=== PATIENT | male | born 1985 | race Caucasian/White ===

== ENCOUNTER 2019-06-30 19:05 | Emergency (ER) | payer OTHER, MEDICAID, SELFPAY ==
[2019-06-30 19:15] VITALS: BP 124/82; PULSE 84; RESP 17; TEMP 37.1; O2SAT 97; BMI 19.3
[2019-06-30 19:29] LABS: Bacteria Urine None Seen; RBC Urine None Seen (0-5/HPF); WBC Urine None Seen (0-5/HPF)
[2019-06-30 19:31] LABS: Appearance Urine UA CLEAR; Bilirubin Urine UA 1+ (NEGATIVE); Color Urine UA YELLOW; Glucose Urine UA NEGATIVE (Negative); Ketones Urine UA TRACE (NEGATIVE); Leukocyte Esterase Urine UA NEGATIVE (NEGATIVE); Nitrite Urine UA NEGATIVE (Negative); Occult Blood Urine UA NEGATIVE (Negative); Protein Urine UA TRACE (Negative); Specific Gravity Urine UA 1.025 (1.000-1.035); Urobilinogen Urine UA 0.2 E.U./dL (0.2); pH Urine UA 5.5 (4.5-8.0)
[2019-06-30 19:32] LABS: Ictotest Urine Negative (Negative)
--- NOTE | 2019-06-30 19:32 | ED.PSYCH ---
HPI - Psych <Cortez Arellano, DO - Last Filed: 07/01/19 18:43> General Chief Complaint: Psychiatric Symptoms Stated Complaint: Suicidal Thoughts Time Seen by Provider: 06/30/19 19:10 Source: patient Mode of arrival: Ambulatory Limitations: no limitations History of Present Illness HPI Narrative: 34 born male, living as female non smoker presents to the emergency department with a chief complaint suicidal ideation. She has a history of severe depression suicidal ideation with multiple hospitalizations at psychiatric facilities for the same period she does have a plan to by hypothermia. She lives with a roommate, whom she admittedly is not very close with. She denies any access to a firearm. She denies alcohol or street drugs. She states that she has a psychiatrist who provides medications and she switched her antipsychotic about 1 week ago but has missed no doses since. Patient sees a therapist about every week or so. Last hospitalization was in January and was voluntary at [facility] complaint: suicidal ideation and feels depressed Onset (ago): day(s) History of same: Yes Relieving factors: none Exacerbating factors: none Context: new medication(s) Associated psychiatric symptoms: depression and suicidal ideation Associated symptoms: denies other symptoms Treatments prior to arrival: none If self harm: admits thoughts of self harm and has plan Related Data Home Medications Medication Instructions Recorded Confirmed aripiprazole 10 mg PO DAILY 07/01/19 07/01/19 brexpiprazole [Rexulti] 0.5 mg PO QPM 07/01/19 07/01/19 dextroamphetamine-amphetamine 20 mg PO DAILY 07/01/19 07/01/19 dextroamphetamine-amphetamine 20 mg PO DAILY 07/01/19 07/01/19 duloxetine 60 mg PO BID 07/01/19 07/01/19 estradiol 2 mg PO QPM 07/01/19 07/01/19 lamotrigine 200 mg PO QPM 07/01/19 07/01/19 prazosin 1 mg PO BEDTIME 07/01/19 07/01/19 prazosin 2 mg PO BEDTIME 07/01/19 07/01/19 spironolactone 12.5 mg PO QPM 07/01/19 07/01/19 trazodone 100 mg PO QPM 07/01/19 07/01/19 Allergies Allergy/AdvReac Type Severity Reaction Status Date / Time No Known Drug Allergies Allergy Verified 06/30/19 21:47 Review of Systems <Cortez Arellano DO - Last Filed: 07/01/19 18:43> Constitutional Constitutional: Denies chills, Denies fatigue, Denies fever(s), Denies frequent falls, Denies lethargy and Denies weakness Eyes Eyes: Denies change in vision, Denies eye discharge, Denies irritation and Denies loss of vision ENT Ears, Nose, Mouth, and Throat: Denies change in voice, Denies dizziness, Denies neck pain, Denies sore throat and Denies throat swelling Cardiovascular Cardiovascular: Denies chest pain, Denies irregular heart rhythm, Denies lightheadedness, Denies palpitations, Denies dyspnea, Denies dyspnea on exertion and Denies orthopnea Respiratory Respiratory: Denies cough, Denies dyspnea, Denies dyspnea on exertion and Denies wheezing Gastrointestinal Gastrointestinal: Denies abdominal pain, Denies change in bowel habits, Denies diarrhea, Denies nausea and Denies vomiting Genitourinary Genitourinary: Denies hematuria, Denies flank pain, Denies urinary incontinence and Denies urinary urgency Musculoskeletal Musculoskeletal: Denies back pain, Denies muscle weakness, Denies neck pain, Denies numbness and Denies tingling Integumentary/Breasts Skin/Breast: Denies pruritus, Denies erythema, Denies rash and Denies wounds Neurologic Neurologic: Denies behavioral changes, Denies confusion, Denies dizziness, Denies frequent falls, Denies loss of vision, Denies numbness, Denies tingling and Denies weakness Psychiatric Psychiatric: Denies anxiety, Denies behavioral changes, Denies confusion, Reports depression, Denies homicidal ideation and Reports suicidal ideation Endocrine Endocrine: Denies fatigue, Denies flushing and Denies palpitations Hematologic/Lymphatic Hematologic/Lymphatic: Denies easy bruising Allergic/Immunologic Allergic/Immunologic: Denies urticaria, Denies throat swelling and Denies wheezing Patient History <Cortez Arellano DO - Last Filed: 07/01/19 18:43> Social History Smoking Status: Never smoker alcohol intake frequency: holidays/special occasions only Substance Use Type: does not use Exam <Cortez Arellano DO - Last Filed: 07/01/19 18:43> Narrative Exam Narrative: GENERAL: [34] year old patient appears stated age. Well-nourished, well-developed patient, in mild distress. HEAD: Atraumatic. Normocephalic. EYES: Pupils equal round and reactive. Extraocular motions intact. No scleral icterus. No injection or drainage. ENT: Nose without bleeding, purulent drainage. Throat without erythema, tonsillar hypertrophy or exudate. Airway patent. NECK: Trachea midline. Non tender CARDIOVASCULAR: Regular rate and rhythm without murmurs, gallops, or rubs. RESPIRATORY: Clear to auscultation. Breath sounds equal bilaterally. No wheezes, rales, or rhonchi. GASTROINTESTINAL: Abdomen soft, non-tender, nondistended. EXTREMITIES: No edema or joint tenderness. BACK: Nontender without deformity or crepitance. No flank tenderness. NEURO: AOx3. SKIN: No rash or erythema of visible areas Initial Vital Signs Initial Vital Signs: Vital Signs Temperature 98.8 F 06/30/19 19:15 Pulse Rate 84 06/30/19 19:15 Respiratory Rate 17 06/30/19 19:15 Blood Pressure 124/82 06/30/19 19:15 Pulse Oximetry 97 06/30/19 19:15 <Chau Archibald DO - Last Filed: 07/01/19 15:09> Initial Vital Signs Initial Vital Signs: Vital Signs Temperature 98.8 F 06/30/19 19:15 Pulse Rate 84 06/30/19 19:15 Respiratory Rate 17 06/30/19 19:15 Blood Pressure 124/82 06/30/19 19:15 Pulse Oximetry 97 06/30/19 19:15 Course <Cortez Arellano DO - Last Filed: 07/01/19 18:43> Course Course Narrative: Patient medically cleared and at the request of patient [facility] contacted for possible bed placement THey have called back and have an available bed, their physician has accepted and they can receive her at 1500. Patient has been resting comfortably all night. I will sign her out to the day provider whom will oversee her remaining hours here. Orders Ordered: Discontinued Medications Diphenhydramine HCl (Benadryl) 50 mg PO NOW ONE Stop: 06/30/19 22:36 Last Admin: 06/30/19 22:41 Dose: 50 mg Documented by: KWOYSKI Duloxetine HCl (Cymbalta) 60 mg PO NOW ONE Stop: 07/01/19 08:01 Last Admin: 07/01/19 07:57 Dose: 60 mg Documented by: XIOMARA Estradiol (Estrace) 2 mg PO NOW ONE Stop: 06/30/19 20:22 Last Admin: 06/30/19 21:33 Dose: 2 mg Documented by: BOOM Lamotrigine (Lamictal) 200 mg PO NOW ONE Stop: 06/30/19 20:22 Last Admin: 06/30/19 21:33 Dose: 200 mg Documented by: BOOM Prazosin HCl (Minipress) 3 mg PO BEDTIME [facility] Last Admin: 06/30/19 22:43 Dose: Not Given Documented by: BOOM Spironolactone (Aldactone) 12.5 mg PO NOW ONE Stop: 06/30/19 20:22 Last Admin: 06/30/19 21:33 Dose: 12.5 mg Documented by: BOOM Trazodone HCl (Desyrel) 100 mg PO BEDTIME [facility] Last Admin: 06/30/19 21:35 Dose: 100 mg Documented by: BOOM Vital Signs Vital signs: Vital Signs - 8 hr 07/01/19 11:30 07/01/19 13:27 Temperature 97.3 F L 98.4 F Pulse Rate 101 H 84 Respiratory Rate 16 16 Blood Pressure [Right Arm] 99/63 117/69 Pulse Oximetry 98 98 <Chau Archibald, - Last Filed: 07/01/19 15:09> Orders Ordered: Discontinued Medications Diphenhydramine HCl (Benadryl) 50 mg PO NOW ONE Stop: 06/30/19 22:36 Last Admin: 06/30/19 22:41 Dose: 50 mg Documented by: BOOM Duloxetine HCl (Cymbalta) 60 mg PO NOW ONE Stop: 07/01/19 08:01 Last Admin: 07/01/19 07:57 Dose: 60 mg Documented by: XIOMARA Estradiol (Estrace) 2 mg PO NOW ONE Stop: 06/30/19 20:22 Last Admin: 06/30/19 21:33 Dose: 2 mg Documented by: BOOM Lamotrigine (Lamictal) 200 mg PO NOW ONE Stop: 06/30/19 20:22 Last Admin: 06/30/19 21:33 Dose: 200 mg Documented by: BOOM Prazosin HCl (Minipress) 3 mg PO BEDTIME [facility] Last Admin: 06/30/19 22:43 Dose: Not Given Documented by: BOOM Spironolactone (Aldactone) 12.5 mg PO NOW ONE Stop: 06/30/19 20:22 Last Admin: 06/30/19 21:33 Dose: 12.5 mg Documented by: BOOM Trazodone HCl (Desyrel) 100 mg PO BEDTIME [facility] Last Admin: 06/30/19 21:35 Dose: 100 mg Documented by: BOOM Vital Signs Vital signs: Vital Signs - 8 hr 07/01/19 11:30 07/01/19 13:27 Temperature 97.3 F L 98.4 F Pulse Rate 101 H 84 Respiratory Rate 16 16 Blood Pressure [Right Arm] 99/63 117/69 Pulse Oximetry 98 98 MDM - Psych <Cortez Arellano DO - Last Filed: 07/01/19 18:43> Lab Data Result diagrams: 06/30/19 19:37 06/30/19 19:37 Labs: Lab Results 06/30/19 06/30/19 06/30/19 Range/Units 19:15 19:15 19:37 WBC 7.3 (4.5-11.0) X10^3/uL RBC 4.96 (4.5-5.9) X10^6/uL Hgb 15.2 (13.5-17.5) g/dL Hct 43.9 (41-53) % MCV 88.5 (80-100) fL MCH 30.7 (26-34) PG MCHC 34.7 (30-36) % RDW 12.6 (11.6-14.8) % Plt Count 185 (150-400) X10^3/uL Neut % (Auto) 68.1 (50-75) % Lymph % (Auto) 24.2 L (25-40) % Andrew % (Auto) 6.1 (3-14) % Eos % (Auto) 0.9 L (2-4) % Baso % (Auto) 0.7 (0-2) % Neut # (Auto) 5000 (0810-5012) /uL Lymph # (Auto) 1800 (2803-4270) /uL Andrew # (Auto) 400 (0-900) /uL Eos # (Auto) 100 (0-450) /uL Baso # (Auto) 100 (0-100) /uL Sodium (137-145) mmol/L Potassium (3.4-5.1) mmol/L Chloride (98-107) mmol/L Carbon Dioxide (22-32) mmol/L BUN (9-20) mg/dL Creatinine (0.66-1.25) mg/dL Estimated GFR (>60) mL/min BUN/Creatinine Ratio (6-22) Glucose (70-100) mg/dL Calcium (8.4-10.2) mg/dL Total Bilirubin (0.2-1.3) mg/dL AST (17-59) IU/L ALT (<50) IU/L Alkaline Phosphatase (38-126) U/L Total Protein (6.3-8.2) g/dL Albumin (3.5-5.0) g/dL Globulin (1.7-4.1) g/dL Albumin/Globulin Ratio (1.0-2.8) TSH (0.47-4.68) uIU/mL Urine Color Yellow Urine Appearance Clear Urine pH 5.5 (4.5-8.0) Ur Specific [place] 1.025 (1.000-1.035) Urine Protein Trace H (Negative) Urine Glucose (UA) Negative (Negative) g/dL Urine Ketones Trace H (NEGATIVE) Urine Occult Blood Negative (Negative) Urine Nitrate Negative (Negative) Urine Bilirubin 1+ H (NEGATIVE) Urine Ictotest Negative (Negative) Urine Urobilinogen 0.2 (0.2) E.U./dL Ur Leukocyte Esterase Negative (NEGATIVE) Urine RBC None seen (0-5/HPF) Urine WBC None seen (0-5/HPF) Urine Bacteria None seen (None) Ur Culture Indicated? Cult not indicated U Morph 300 ng/mL cutoff Negative (Negative) Ur Oxycodone Screen Negative (Negative) Urine Methadone Screen Negative (Negative) Ur Barbiturates Screen Negative (Negative) U Tricyclic Antidepress Negative (Negative) Ur Phencyclidine Scrn Negative (Negative) Ur Amphetamines Screen Positive H (Negative) U Methamphetamines Scrn Negative (Negative) Ur MDMA Scrn (Ecstasy) Negative (Negative) U Benzodiazepines Scrn Negative (Negative) Urine Cocaine Screen Negative (Negative) U Marijuana (THC) Screen Negative (Negative) Ethyl Alcohol ( - 10) mg/dL 06/30/19 06/30/19 Range/Units 19:37 19:37 WBC (4.5-11.0) X10^3/uL RBC (4.5-5.9) X10^6/uL Hgb (13.5-17.5) g/dL Hct (41-53) % MCV (80-100) fL MCH (26-34) PG MCHC (30-36) % RDW (11.6-14.8) % Plt Count (150-400) X10^3/uL Neut % (Auto) (50-75) % Lymph % (Auto) (25-40) % Andrew % (Auto) (3-14) % Eos % (Auto) (2-4) % Baso % (Auto) (0-2) % Neut # (Auto) (0553-0139) /uL Lymph # (Auto) (3535-6731) /uL Andrew # (Auto) (0-900) /uL Eos # (Auto) (0-450) /uL Baso # (Auto) (0-100) /uL Sodium 140 (137-145) mmol/L Potassium 3.7 (3.4-5.1) mmol/L Chloride 103 (98-107) mmol/L Carbon Dioxide 30 (22-32) mmol/L BUN 17 (9-20) mg/dL Creatinine 1.10 (0.66-1.25) mg/dL Estimated GFR > 60.0 (>60) mL/min BUN/Creatinine Ratio 15.5 (6-22) Glucose 95 (70-100) mg/dL Calcium 9.7 (8.4-10.2) mg/dL Total Bilirubin 0.6 (0.2-1.3) mg/dL AST 24 (17-59) IU/L ALT 29 (<50) IU/L Alkaline Phosphatase 45 (38-126) U/L Total Protein 7.2 (6.3-8.2) g/dL Albumin 4.3 (3.5-5.0) g/dL Globulin 2.9 (1.7-4.1) g/dL Albumin/Globulin Ratio 1.5 (1.0-2.8) TSH 1.05 (0.47-4.68) uIU/mL Urine Color Urine Appearance Urine pH (4.5-8.0) Ur Specific [place] (1.000-1.035) Urine Protein (Negative) Urine Glucose (UA) (Negative) g/dL Urine Ketones (NEGATIVE) Urine Occult Blood (Negative) Urine Nitrate (Negative) Urine Bilirubin (NEGATIVE) Urine Ictotest (Negative) Urine Urobilinogen (0.2) E.U./dL Ur Leukocyte Esterase (NEGATIVE) Urine RBC (0-5/HPF) Urine WBC (0-5/HPF) Urine Bacteria (None) Ur Culture Indicated? U Morph 300 ng/mL cutoff (Negative) Ur Oxycodone Screen (Negative) Urine Methadone Screen (Negative) Ur Barbiturates Screen (Negative) U Tricyclic Antidepress (Negative) Ur Phencyclidine Scrn (Negative) Ur Amphetamines Screen (Negative) U Methamphetamines Scrn (Negative) Ur MDMA Scrn (Ecstasy) (Negative) U Benzodiazepines Scrn (Negative) Urine Cocaine Screen (Negative) U Marijuana (THC) Screen (Negative) Ethyl Alcohol < 10 ( - 10) mg/dL Point of Care Testing Glucose POC 80 <Chau Archibald, DO - Last Filed: 07/01/19 15:09> Lab Data Labs: Lab Results 06/30/19 06/30/19 06/30/19 Range/Units 19:15 19:15 19:37 WBC 7.3 (4.5-11.0) X10^3/uL RBC 4.96 (4.5-5.9) X10^6/uL Hgb 15.2 (13.5-17.5) g/dL Hct 43.9 (41-53) % MCV 88.5 (80-100) fL MCH 30.7 (26-34) PG MCHC 34.7 (30-36) % RDW 12.6 (11.6-14.8) % Plt Count 185 (150-400) X10^3/uL Neut % (Auto) 68.1 (50-75) % Lymph % (Auto) 24.2 L (25-40) % Andrew % (Auto) 6.1 (3-14) % Eos % (Auto) 0.9 L (2-4) % Baso % (Auto) 0.7 (0-2) % Neut # (Auto) 5000 (7656-9979) /uL Lymph # (Auto) 1800 (0690-4505) /uL Andrew # (Auto) 400 (0-900) /uL Eos # (Auto) 100 (0-450) /uL Baso # (Auto) 100 (0-100) /uL Sodium (137-145) mmol/L Potassium (3.4-5.1) mmol/L Chloride (98-107) mmol/L Carbon Dioxide (22-32) mmol/L BUN (9-20) mg/dL Creatinine (0.66-1.25) mg/dL Estimated GFR (>60) mL/min BUN/Creatinine Ratio (6-22) Glucose (70-100) mg/dL Calcium (8.4-10.2) mg/dL Total Bilirubin (0.2-1.3) mg/dL AST (17-59) IU/L ALT (<50) IU/L Alkaline Phosphatase (38-126) U/L Total Protein (6.3-8.2) g/dL Albumin (3.5-5.0) g/dL Globulin (1.7-4.1) g/dL Albumin/Globulin Ratio (1.0-2.8) TSH (0.47-4.68) uIU/mL Urine Color Yellow Urine Appearance Clear Urine pH 5.5 (4.5-8.0) Ur Specific [place] 1.025 (1.000-1.035) Urine Protein Trace H (Negative) Urine Glucose (UA) Negative (Negative) g/dL Urine Ketones Trace H (NEGATIVE) Urine Occult Blood Negative (Negative) Urine Nitrate Negative (Negative) Urine Bilirubin 1+ H (NEGATIVE) Urine Ictotest Negative (Negative) Urine Urobilinogen 0.2 (0.2) E.U./dL Ur Leukocyte Esterase Negative (NEGATIVE) Urine RBC None seen (0-5/HPF) Urine WBC None seen (0-5/HPF) Urine Bacteria None seen (None) Ur Culture Indicated? Cult not indicated U Morph 300 ng/mL cutoff Negative (Negative) Ur Oxycodone Screen Negative (Negative) Urine Methadone Screen Negative (Negative) Ur Barbiturates Screen Negative (Negative) U Tricyclic Antidepress Negative (Negative) Ur Phencyclidine Scrn Negative (Negative) Ur Amphetamines Screen Positive H (Negative) U Methamphetamines Scrn Negative (Negative) Ur MDMA Scrn (Ecstasy) Negative (Negative) U Benzodiazepines Scrn Negative (Negative) Urine Cocaine Screen Negative (Negative) U Marijuana (THC) Screen Negative (Negative) Ethyl Alcohol ( - 10) mg/dL 06/30/19 06/30/19 Range/Units 19:37 19:37 WBC (4.5-11.0) X10^3/uL RBC (4.5-5.9) X10^6/uL Hgb (13.5-17.5) g/dL Hct (41-53) % MCV (80-100) fL MCH (26-34) PG MCHC (30-36) % RDW (11.6-14.8) % Plt Count (150-400) X10^3/uL Neut % (Auto) (50-75) % Lymph % (Auto) (25-40) % Andrew % (Auto) (3-14) % Eos % (Auto) (2-4) % Baso % (Auto) (0-2) % Neut # (Auto) (3962-6575) /uL Lymph # (Auto) (5025-7946) /uL Andrew # (Auto) (0-900) /uL Eos # (Auto) (0-450) /uL Baso # (Auto) (0-100) /uL Sodium 140 (137-145) mmol/L Potassium 3.7 (3.4-5.1) mmol/L Chloride 103 (98-107) mmol/L Carbon Dioxide 30 (22-32) mmol/L BUN 17 (9-20) mg/dL Creatinine 1.10 (0.66-1.25) mg/dL Estimated GFR > 60.0 (>60) mL/min BUN/Creatinine Ratio 15.5 (6-22) Glucose 95 (70-100) mg/dL Calcium 9.7 (8.4-10.2) mg/dL Total Bilirubin 0.6 (0.2-1.3) mg/dL AST 24 (17-59) IU/L ALT 29 (<50) IU/L Alkaline Phosphatase 45 (38-126) U/L Total Protein 7.2 (6.3-8.2) g/dL Albumin 4.3 (3.5-5.0) g/dL Globulin 2.9 (1.7-4.1) g/dL Albumin/Globulin Ratio 1.5 (1.0-2.8) TSH 1.05 (0.47-4.68) uIU/mL Urine Color Urine Appearance Urine pH (4.5-8.0) Ur Specific [place] (1.000-1.035) Urine Protein (Negative) Urine Glucose (UA) (Negative) g/dL Urine Ketones (NEGATIVE) Urine Occult Blood (Negative) Urine Nitrate (Negative) Urine Bilirubin (NEGATIVE) Urine Ictotest (Negative) Urine Urobilinogen (0.2) E.U./dL Ur Leukocyte Esterase (NEGATIVE) Urine RBC (0-5/HPF) Urine WBC (0-5/HPF) Urine Bacteria (None) Ur Culture Indicated? U Morph 300 ng/mL cutoff (Negative) Ur Oxycodone Screen (Negative) Urine Methadone Screen (Negative) Ur Barbiturates Screen (Negative) U Tricyclic Antidepress (Negative) Ur Phencyclidine Scrn (Negative) Ur Amphetamines Screen (Negative) U Methamphetamines Scrn (Negative) Ur MDMA Scrn (Ecstasy) (Negative) U Benzodiazepines Scrn (Negative) Urine Cocaine Screen (Negative) U Marijuana (THC) Screen (Negative) Ethyl Alcohol < 10 ( - 10) mg/dL Point of Care Testing Glucose POC 80 MDM Narrative Medical decision making narrative: Received turned over from day provider. Reviewed patient's history and physical. Perform my own examination. Patient has been calm throughout her stay. She remains medically cleared. Transport has been arranged for earlier this afternoon. Whole continue to plan for transfer. Discharge Plan Departure Patient Disposition: Xfer Psychiatric Hosp Clinical Impression: Suicidal ideation Depression Qualifiers: Depression Type: major depressive disorder Major depression recurrence: unspecified whether recurrent Active/Remission status: currently active Major depression episode severity: severe Psychotic features: without psychotic features Qualified Code(s): F32.2 - Major depressive disorder, single episode, severe without psychotic features Discharge Date/Time: 07/01/19 13:45 Referrals: Boby Wang [Primary Care Provider] -
[2019-06-30 19:37] LABS: UR Morphine/Opiate cutoff 300 Negative (Negative); Ur Creatinine Normal (Normal); Ur Specific Gravity Normal (Normal); Urine Amphetamines Positive (Negative); Urine Barbiturates Negative (Negative); Urine Benzodiazepines Negative (Negative); Urine Cocaine Negative (Negative); Urine MDMA Negative (Negative); Urine Methadone Negative (Negative); Urine Methamphetamines Negative (Negative); Urine Oxycodone Negative (Negative); Urine Phencyclidine Negative (Negative); Urine Tetrahydrocannabinol Negative (Negative); Urine Tricyclic Antidepressant Negative (Negative); Urine pH Normal (Normal)
[2019-06-30 19:47] LABS: Add Manual Diff / Slide Review NO; Basophils Absolute Auto 100 /uL (0-100); Basophils Percent Auto 0.7 % (0-2); Eosinophils Absolute Auto 100 /uL (0-450); Eosinophils Percent Auto 0.9 % (2-4); Hematocrit 43.9 % (41-53); Hemoglobin 15.2 g/dL (13.5-17.5); Lymphocytes Absolute Auto 1800 /uL (1100-4500); Lymphocytes Percent Auto 24.2 % (25-40); Mean Corpuscular HGB Conc 34.7 % (30-36); Mean Corpuscular Hemoglobin 30.7 PG (26-34); Mean Corpuscular Volume 88.5 fL (80-100); Monocytes Absolute Auto 400 /uL (0-900); Monocytes Percent Auto 6.1 % (3-14); Neutrophils Absolute Auto 5000 /uL (1500-7000); Neutrophils Percent Auto 68.1 % (50-75); Platelet Count 185 X10^3/uL (150-400); Red Blood Cell Count 4.96 X10^6/uL (4.5-5.9); Red Cell Distribution Width 12.6 % (11.6-14.8); White Blood Cell Count 7.3 X10^3/uL (4.5-11.0)
[2019-06-30 19:51] LABS: Culture Indicated Urine Cult Not Indicated
[2019-06-30 20:01] LABS: Alanine Aminotransferase 29 IU/L (<50); Albumin 4.3 g/dL (3.5-5.0); Albumin Globulin Ratio 1.5 (1.0-2.8); Alkaline Phosphatase 45 U/L (38-126); Aspartate Aminotransferase 24 IU/L (17-59); BUN Creatinine Ratio 15.5 (6-22); Bilirubin Total 0.6 mg/dL (0.2-1.3); Blood Urea Nitrogen 17 mg/dL (9-20); Calcium 9.7 mg/dL (8.4-10.2); Carbon Dioxide 30 mmol/L (22-32); Chloride 103 mmol/L (98-107); Estimated Glomerular Filt Rate > 60.0 mL/min (>60); Ethanol (ETOH) < 10 mg/dL; Globulin 2.9 g/dL (1.7-4.1); Glucose 95 mg/dL (70-100); HEMOLYSIS < 15 (0-50); Potassium 3.7 mmol/L (3.4-5.1); Sodium 140 mmol/L (137-145); Total Protein 7.2 g/dL (6.3-8.2)
[2019-06-30 20:32] LABS: Thyroid Stimulating Hormone 1.05 uIU/mL (0.47-4.68)
[2019-06-30 21:01] VITALS: BP 116/75; PULSE 97; RESP 16; O2SAT 98
[2019-06-30] MEDS: lamoTRIgine 100 MG TABLET 200 MG PO (21:33)
[2019-06-30] MEDS: SPIRONOLACTONE 25 MG TABLET 12.5 MG PO (21:33)
[2019-06-30] MEDS: ESTRADIOL 1 MG TABLET 2 MG PO (21:33)
[2019-06-30] MEDS: TRAZODONE 100 MG TABLET PO (21:35)
--- NOTE | 2019-06-30 21:51 | PC.NURSE ---
Pt confirms that she goes by Harini and pronouns are she/her. Pt states that she's had 5 hospitalizations for psych in the past, wants to go to [facility]. Does not want to go to [place]. Unable to obtain her Cymbalta, Prazosin, and Rexulti. Pt and Dr Arellano aware. Pt states that she will not hurt herself while in ED. Pt now lying down, calm, cooperative.
[2019-06-30 22:23] VITALS: BP 111/82; PULSE 84; RESP 16; O2SAT 97
--- NOTE | 2019-06-30 22:32 | PC.NURSE ---
Pt states she also takes Flonase at night and requests it. Unable to obtain at this time-- Dr Arellano aware. Verbal order received for benedryl PO instead.
[2019-06-30] MEDS: diphenhydrAMINE 25 MG TABLET 50 MG PO (22:41)
--- NOTE | 2019-07-01 04:51 | PC.NURSE ---
I spoke with Naeem at [facility] who is currently reviewing pt's chart. He stated he will call the provider and have an answer for us shortly. Pt is resting in bed with eyes closed, NAD.
[2019-07-01 04:56] VITALS: BP 91/50; PULSE 70; RESP 16; TEMP 36.8; O2SAT 99
[2019-07-01 07:57] VITALS: BP 94/60; PULSE 64; RESP 16; TEMP 36.6; O2SAT 97
[2019-07-01] MEDS: DULOXETINE 30 MG CAPSULE 60 MG PO (07:57)
--- NOTE | 2019-07-01 08:05 | PC.NURSE ---
Pt takes Adderall at home, this RN called pharmacy and was told we do not have it in the hospital. Pt and provider both aware.
[2019-07-01 11:30] VITALS: BP 99/63; PULSE 101; RESP 16; TEMP 36.3; O2SAT 98
--- NOTE | 2019-07-01 13:14 | PC.NURSE ---
Attempted to call report, RN to call back when ready for report.
[2019-07-01 13:27] VITALS: BP 117/69; PULSE 84; RESP 16; TEMP 36.9; O2SAT 98
== END 2019-07-01 13:45 ==
PROVIDERS: Emergency Medicine; Emergency Provider Emergency Medicine; PCP Family Medicine
DX: R45.851 Suicidal ideations (principal); F32.2 Major depressive disorder, single episode, severe without psychotic features
CPT/HCPCS: 80053; 80305; 80320; 81001; 82962; 84443; 85025; 99285

== ENCOUNTER 2019-07-13 15:44 | Emergency (ER) | payer OTHER, MEDICAID, SELFPAY ==
[2019-07-13 16:00] VITALS: BP 110/70; PULSE 83; RESP 18; TEMP 36.9; O2SAT 100; BMI 20.3
[2019-07-13 16:44] LABS: Influenza A - CEPHEID Flu A NEGATIVE (NEGATIVE); Influenza B - CEPHEID Flu B NEGATIVE (NEGATIVE)
[2019-07-13] MEDS: KETOROLAC 60 MG/2 ML VIAL IM (17:53)
[2019-07-13] MEDS: ONDANSETRON 4 MG ODT SL ×2 (17:54→19:29)
[2019-07-13 18:59] VITALS: BP 102/63; PULSE 64; RESP 16; O2SAT 99
--- NOTE | 2019-07-13 19:18 | ED_ITS ---
HPI - Fever <VALERIANO Brody - Last Filed: 07/13/19 19:21> General Chief Complaint: Fever Stated Complaint: thinks has the flu Time Seen by Provider: 07/13/19 16:55 Source: patient Mode of arrival: Ambulatory Limitations: no limitations History of Present Illness HPI Narrative: The patient is a 34-year-old born male, living as a female nonsmoker with history of depression who presents with a chief complaint ?I think I've the flu.'complains of headaches, muscle aches and chills for the past 4-5 days. Also complains of sore throat, denies ear pain. Complains of nausea, no vomiting diarrhea or abdominal pain. Dry cough, nonproductive cough. Has not been vaccinated for the flu yet. Related Data Home Medications Medication Instructions Recorded Confirmed aripiprazole 10 mg PO DAILY 07/01/19 07/01/19 brexpiprazole [Rexulti] 0.5 mg PO QPM 07/01/19 07/01/19 dextroamphetamine-amphetamine 20 mg PO DAILY 07/01/19 07/01/19 dextroamphetamine-amphetamine 20 mg PO DAILY 07/01/19 07/01/19 duloxetine 60 mg PO BID 07/01/19 07/01/19 estradiol 2 mg PO QPM 07/01/19 07/01/19 lamotrigine 200 mg PO QPM 07/01/19 07/01/19 prazosin 1 mg PO BEDTIME 07/01/19 07/01/19 prazosin 2 mg PO BEDTIME 07/01/19 07/01/19 spironolactone 12.5 mg PO QPM 07/01/19 07/01/19 trazodone 100 mg PO QPM 07/01/19 07/01/19 Previous Rx's Medication Instructions Recorded meclizine 25 mg PO TID PRN #10 tab 07/13/19 ondansetron 4 mg PO Q6H PRN #10 tab 07/13/19 Allergies Allergy/AdvReac Type Severity Reaction Status Date / Time No Known Drug Allergies Allergy Verified 07/13/19 16:00 Review of Systems <VALERIANO Brody - Last Filed: 07/13/19 19:21> Review of Systems Narrative: GENERAL: See HPI HEENT: See HPI RESPIRATORY: Denies dyspnea, cough, wheezing, hemoptysis, sputum. CARDIOVASCULAR: Denies chest pain, palpitations, orthopnea, edema, GASTROINTESTINAL: Denies nausea, vomiting, abdominal pain, diarrhea, constipation, melena. : Denies dysuria, frequency, incontinence, hematuria, urinary retention. MUSCULOSKELETAL: denies weakness, joint pain, or bony pain SKIN: Denies rash, skin lesions, or other NEUROLOGIC: Denies weakness, headache, numbness, change in speech, confusion, seizures, incoordination. PSYCHIATRIC: No concerning psychosocial issues. 12 point review of systems is negative except for those stated above Patient History <VALERIANO Brody - Last Filed: 07/13/19 19:21> Social History Smoking Status: Never smoker Smoking Status: Never smoker alcohol intake frequency: holidays/special occasions only Substance Use Type: does not use Exam <[facility] - Last Filed: 07/13/19 19:21> Narrative Exam Narrative: GENERAL: This is a well-nourished, well-developed patient, in no acute distress HEAD: Atraumatic. Normocephalic. No temporal or scalp tenderness. EYES: Pupils equal round and reactive. Extraocular motions intact. No scleral icterus. No injection or drainage. ENT: Nose without bleeding, purulent drainage or septal hematoma. Throat without erythema, tonsillar hypertrophy or exudate. Uvula midline. Airway patent. Bilateral TMs pearly guzman NECK: Trachea midline. No JVD or lymphadenopathy. Supple, nontender, no meningeal signs. CARDIOVASCULAR: Regular rate and rhythm without murmurs, gallops, or rubs. RESPIRATORY: Clear to auscultation. Breath sounds equal bilaterally. No wheezes, rales, or rhonchi. No cough. No increased respiratory effort. No accessory muscle use. GASTROINTESTINAL: Abdomen soft, non-tender, nondistended. No hepato- splenomegaly, or palpable masses. No guarding. Active bowel sounds all 4 quadrants EXTREMITIES: No clubbing, cyanosis, or edema. No joint tenderness, effusion, or edema noted. BACK: Nontender without deformity or crepitance. No flank tenderness. NEURO: AOx3. SKIN: No rash or erythema. Initial Vital Signs Initial Vital Signs: Vital Signs Temperature 98.4 F 12/14/19 16:00 Pulse Rate 83 07/13/19 16:00 Respiratory Rate 18 07/13/19 16:00 Blood Pressure 110/70 07/13/19 16:00 Pulse Oximetry 100 07/13/19 16:00 <Izabela Bonilla MD - Last Filed: 07/14/19 17:47> Initial Vital Signs Initial Vital Signs: Vital Signs Temperature 98.4 F 07/13/19 16:00 Pulse Rate 83 07/13/19 16:00 Respiratory Rate 18 07/13/19 16:00 Blood Pressure 110/70 07/13/19 16:00 Pulse Oximetry 100 07/13/19 16:00 Course <LEILA Brody - Last Filed: 07/13/19 19:21> Orders Ordered: Discontinued Medications Ketorolac Tromethamine (Toradol) 60 mg IM NOW ONE Stop: 07/13/19 17:39 Last Admin: 07/13/19 17:53 Dose: 60 mg Documented by: TODD Ondansetron HCl (Zofran Odt) 4 mg SL NOW ONE Stop: 07/13/19 17:39 Last Admin: 07/13/19 17:54 Dose: 4 mg Documented by: TODD Ondansetron HCl (Zofran Odt Prepack) 1 bottle MISC SEEINSTR ONE Stop: 07/13/19 18:51 Last Admin: 07/13/19 19:19 Dose: 1 bottle Documented by: DACIA Ondansetron HCl (Zofran Odt) 4 mg SL NOW ONE Stop: 07/13/19 19:27 Last Admin: 07/13/19 19:29 Dose: 4 mg Documented by: DACIA Vital Signs Vital signs: Vital Signs - 8 hr 07/13/19 16:00 07/13/19 18:59 Temperature 98.4 F Pulse Rate 83 64 Respiratory Rate 18 16 Blood Pressure 110/70 Blood Pressure [Right Arm] 102/63 Pulse Oximetry 100 99 <Izabela Bonilla MD - Last Filed: 07/14/19 17:47> Orders Ordered: Discontinued Medications Ketorolac Tromethamine (Toradol) 60 mg IM NOW ONE Stop: 07/13/19 17:39 Last Admin: 07/13/19 17:53 Dose: 60 mg Documented by: TODD Ondansetron HCl (Zofran Odt) 4 mg SL NOW ONE Stop: 07/13/19 17:39 Last Admin: 07/13/19 17:54 Dose: 4 mg Documented by: TODD Ondansetron HCl (Zofran Odt Prepack) 1 bottle MISC SEEINSTR ONE Stop: 07/13/19 18:51 Last Admin: 07/13/19 19:19 Dose: 1 bottle Documented by: DACIA Ondansetron HCl (Zofran Odt) 4 mg SL NOW ONE Stop: 07/13/19 19:27 Last Admin: 07/13/19 19:29 Dose: 4 mg Documented by: DACIA Vital Signs Vital signs: Vital Signs - 8 hr 07/13/19 16:00 07/13/19 18:59 Temperature 98.4 F Pulse Rate 83 64 Respiratory Rate 18 16 Blood Pressure 110/70 Blood Pressure [Right Arm] 102/63 Pulse Oximetry 100 99 MDM - Fever <VALERIANO Brody - Last Filed: 07/13/19 19:21> Lab Data Labs: Lab Results 07/13/19 Range/Units 16:07 Influenza A (RT-PCR) Flu a negative (NEGATIVE) Influenza B (RT-PCR) Flu b negative (NEGATIVE) Point of Care Testing Rapid Strep A Negative Urine Dip Bedside Urine Glucose Negative Bedside Urine Bilirubin - Negative Bedside Urine Ketone - Negative Urine Specific [place] 1.005 Bedside Urine Occult Blood - Negative Bedside Urine pH 7.5 Bedside Urine Protein - Negative Bedside Urine Urobilinogen +/- 1mg Bedside Urine Nitrite - Negative Bedside Urine Leukocytes - Negative Esterase MDM Narrative Medical decision making narrative: The patient is a 34-year-old foreign male living as female who presents with a chief complaint of ?I think I've the flu.Patient has negative for flu and strep. Patient was given Toradol for headaches, Zofran for nausea. [place] improved Zofran. Give prescription of Zofran. Discussed at length rest, pushing fluids, following up with primary care provider. Discussed coming back to the ER for any acute concerns such as inability keep down fluids. Patient has no questions or concerns upon discharge and states understanding of return precautions as well as follow-up care <Izabela Bonilla MD - Last Filed: 07/14/19 17:47> Lab Data Labs: Lab Results 07/13/19 Range/Units 16:07 Influenza A (RT-PCR) Flu a negative (NEGATIVE) Influenza B (RT-PCR) Flu b negative (NEGATIVE) Point of Care Testing Rapid Strep A Negative Urine Dip Bedside Urine Glucose Negative Bedside Urine Bilirubin - Negative Bedside Urine Ketone - Negative Urine Specific [place] 1.005 Bedside Urine Occult Blood - Negative Bedside Urine pH 7.5 Bedside Urine Protein - Negative Bedside Urine Urobilinogen +/- 1mg Bedside Urine Nitrite - Negative Bedside Urine Leukocytes - Negative Esterase Discharge Plan Departure Patient Disposition: Home Clinical Impression: Depression Upper respiratory infection Qualifiers: URI type: unspecified viral URI Qualified Code(s): J06.9 - Acute upper respi ratory infection, unspecified Discharge Date/Time: 07/13/19 19:20 Instructions: DI for Viral Upper Respiratory Infection -- Adult Activity Restrictions/Additional Instructions: Your flu and strep test came back negative today, please push fluids, use [id number] medications as needed and able. We have given you a take-home pack of Zofran. [email or web address] Please follow-up with primary care provider in a few days. Please come back to emergency department for any acute concerns Prescriptions: New ondansetron 4 mg tablet,disintegrating 4 mg PO Q6H PRN (Reason: nausea and vomiting) Qty: 10 RF: 0 meclizine 25 mg tablet 25 mg PO TID PRN (Reason: dizziness) Qty: 10 RF: 0 No Action lamotrigine 200 mg tablet 200 mg PO QPM RF: 0 spironolactone 25 mg tablet 12.5 mg PO QPM RF: 0 dextroamphetamine-amphetamine 20 mg capsule,extended release 24hr 20 mg PO DAILY RF: 0 trazodone 100 mg tablet 100 mg PO QPM RF: 0 estradiol 2 mg tablet 2 mg PO QPM RF: 0 prazosin 2 mg capsule 2 mg PO BEDTIME RF: 0 aripiprazole 10 mg tablet 10 mg PO DAILY RF: 0 duloxetine 60 mg capsule,delayed release(DR/EC) 60 mg PO BID RF: 0 Rexulti 0.5 mg tablet 0.5 mg PO QPM RF: 0 dextroamphetamine-amphetamine 20 mg capsule,extended release 24hr 20 mg PO DAILY RF: 0 prazosin 1 mg capsule 1 mg PO BEDTIME RF: 0 Referrals: Boby Wang [Primary Care Provider] -
[2019-07-13] MEDS: ONDANSETRON 4 MG ODT PREPACK 1 BOTTLE MISC (19:19)
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
== END 2019-07-13 19:20 | disposition home or self-care (01) ==
PROVIDERS: Emergency Medicine; Emergency Provider Nurse Practitioner Family; PCP Family Medicine
DX: F32.9 Major depressive disorder, single episode, unspecified (principal); J06.9 Acute upper respiratory infection, unspecified
CPT/HCPCS: 81003; 87502; 87880; 96372; 99281; 99283; J1885